=== PATIENT | female | born 1935 | race Caucasian/White ===

== ENCOUNTER 2018-05-04 18:02 | Observation (INO) ==
--- NOTE | 2018-05-04 18:20 | ED ---
HPI General Chief Complaint: Shortness of Breath/Dyspnea Stated Complaint: Trouble breathing Time Seen by Provider: 05/04/18 18:19 Source: patient Mode of arrival: ambulatory Limitations: no limitations History of Present Illness 82-year-old female patient with history of atrial fibrillation currently on Eliquis, digoxin, hypertension, presents to the ER today because she states that she has been having worsening dyspnea on exertion and shortness of breath in the last week. She has been coughing but without significant phlegm production. She denies any fevers, vomiting, chest pains, or other symptoms. modifying Factors: None Associated Signs & Symptoms: Dyspnea on exertion, shortness of breath, coughing Risk Factors: Elderly Related Data Home Medications Medication Instructions Recorded Confirmed albuterol sulfate [Ventolin HFA] 2 puff INHALATION Q4-6H PRN 05/04/18 05/04/18 apixaban [Eliquis] 5 mg PO BID 05/04/18 05/04/18 digoxin 0.125 mg PO DAILY 05/04/18 05/04/18 levothyroxine 75 mcg PO DAILY 05/04/18 05/04/18 metoprolol tartrate 75 mg PO BID 05/04/18 05/04/18 Allergies Allergy/AdvReac Type Severity Reaction Status Date / Time fluticasone Allergy Severe PALPITATION Verified 05/04/18 18:29 fluticasone furoate Allergy Severe PALPITATION Verified 05/04/18 18:29 pravastatin Allergy Severe all Verified 05/04/18 18:29 statins cause muscle aches salmeterol Allergy Severe PALPITATION Verified 05/04/18 18:29 Sulfa (Sulfonamide Allergy Severe DISORIENTED Verified 05/04/18 18:29 Antibiotics) grass pollen AdvReac Severe Unknown Verified 05/04/18 18:29 Review of Systems ROS: all other systems reviewed are negative PMFSH History History Provided By: Patient Medical History Medical History Asthma (Acute) Breast cancer (Acute) Detached retina (Acute) Hypothyroid (Acute) Afib (Acute) HTN (hypertension) (Acute) Surgical History Surgical History H/O lumpectomy (Acute) H/O: (Acute) Hx of cholecystectomy (Acute) Knee joint replacement status (Acute) S/P hip replacement (Acute) Social History Social History Substance History: No History of Abuse Smoking Status: Former smoker How Often Do You Have a Drink Containing Alcohol: Monthly or less Recent Travel in [facility] within the Last 8 Weeks: No Recent Out of Country Travel within the Last 8 Weeks: No Exam Narrative Exam Narrative: GENERAL: Well-developed elderly female patient currently in mild distress, mildly short of breath on exam. Awake and oriented x3. SKIN: Focused skin assessment warm/dry. HEAD: Atraumatic. Normocephalic. EYES: Pupils equal and round. No scleral icterus. No injection or drainage. ENT: No nasal bleeding or discharge. Mucous membranes pink and moist. NECK: Trachea midline. No JVD. CARDIOVASCULAR: Regular rate and rhythm. No murmur appreciated. RESPIRATORY: Mild o accessory muscle use. Clear to auscultation. Breath sounds equal bilaterally. GASTROINTESTINAL: Abdomen soft, non-tender, nondistended. Hepatic and splenic margins not palpable. MUSCULOSKELETAL: No obvious deformities. No clubbing. No cyanosis. Bilateral trace to +1 lower leg edema. NEUROLOGICAL: Awake and alert. No obvious cranial nerve deficits. Motor grossly within normal limits. Normal speech. PSYCHIATRIC: Appropriate mood and affect; insight and judgment normal. Course Initial Documented Vital Signs Temperature 98.4 F 05/04/18 18:20 Pulse Rate 92 H 05/04/18 18:20 Respiratory Rate 22 05/04/18 18:20 Blood Pressure 171/107 H 05/04/18 18:20 Pulse Oximetry 96 05/04/18 18:20 Last Documented Vital Signs Temperature 98.4 F 05/04/18 19:30 Pulse Rate 86 05/04/18 20:28 Respiratory Rate 20 05/04/18 20:28 Blood Pressure 187/90 H 05/04/18 20:03 Pulse Oximetry 95 05/04/18 20:03 Sign Out Sign Out Data: Patient Sign Out occurred on 05/04/18 at 19:04. Patient's care was discussed, and care was transferred from Avani Robles MD to Jessica Altman. Sign Out Comment: Case is signed out to oncoming physician at 7 PM pending workup. Disposition based on findings. Last updated by Avani Robles MD at 05/04/18 19:00 Medical Decision Making MDM Narrative Medical decision making narrative: Workup was initiated by me in the ER. Lab work and x-rays are all pending on sign out at 7 PM. I received patient in signout, patient has had productive cough, wheezing, dyspnea exertion which is getting worse over the past week. Patient denies any fevers or chills, denies any nausea or vomiting. Patient reports that she does see a licensed appraiser, Dr. Gaines, reports that she sees him because of the atrial fibrillation. She is currently on Eliquis for this. Labs have been resulted. WBC 8.2, hemoglobin 13.9, hematocrit 42.8, platelets 252 D-dimer is elevated at 0.67 Sodium 139, potassium 4.5, chloride 102, BUN 22, creatinine 1.0, glucose 181 Troponin less than 0.02, BNP [address] has been ordered as her d-dimer was elevated. Patient has slight wheezing on exam, patient will be given a dose of IV Solu- Medrol as well as 2 DuoNeb treatments. Patient's EKG shows atrial fibrillation with some moderate ST segment depressions, this EKG was compared to an EKG from March 12, 2015, the ST segment depressions are slightly more pronounced when compared to her previous EKGs. Patient does follow-up with a licensed appraiser, Dr. Gaines. CTA is negative for PE, she does have moderate coronary calcifications with cardiomegaly noted on the CT. Plan to obs as her sob could be due to ischemia. Plan to obs over night for cardiac monitoring case reviewed with Amy RUTH who accepts pt to service for observation Medical Screen Exam Complete: Yes Emergency Medical Condition: Yes Differential Diagnosis Differential Diagnosis: Bronchitis versus pneumonia versus CHF versus influenza Lab Data Result diagrams: 05/04/18 18:50 05/04/18 18:50 Lab Results 05/04/18 05/04/18 05/04/18 Range/Units 18:50 18:50 18:50 CBC w Diff Auto diff final WBC 8.2 (4.0-11.0) th/mm3 RBC 4.84 (4.00-5.30) mil/mm3 Hgb 13.9 (11.6-15.3) gm/dL Hct 42.8 (35.0-46.0) % MCV 88.4 (80.0-100.0) fL MCH 28.8 (27.0-34.0) pg MCHC 32.5 (32.0-36.0) % RDW 12.9 (11.6-17.2) % Plt Count 252 (150-450) th/mm3 MPV 9.0 (7.0-11.0) fL Neut % (Auto) 56.7 (16.0-70.0) % Lymph % (Auto) 26.9 (9.0-44.0) % [place] % (Auto) 9.9 H (0.0-8.0) % Eos % (Auto) 5.0 H (0.0-4.0) % Baso % (Auto) 1.5 (0.0-2.0) % Neut # (Auto) 4.7 (1.8-7.7) th/mm3 Lymph # (Auto) 2.2 (1.0-4.8) th/mm3 [place] # (Auto) 0.8 (0.0-0.9) th/mm3 Eos # (Auto) 0.4 (0.0-0.4) th/mm3 Baso # (Auto) 0.1 (0.0-0.2) th/mm3 WBC Differential . Differential Comment . D-Dimer Quant (PE/DVT) (0.00-0.50) mg/L FEU Sodium 139 (136-145) meq/L Potassium 4.5 (3.5-5.1) meq/L Chloride 102 (98-107) meq/L Carbon Dioxide 30.4 (21.0-32.0) meq/L Anion Gap 7 (5-15) meq/L BUN 22 H (7-18) mg/dL Creatinine 1.00 (0.50-1.00) mg/dL Estimated GFR 53 L (>89) mL/min Random Glucose 181 H (74-106) mg/dL Calcium 9.1 (8.5-10.1) mg/dL Total Bilirubin 0.2 (0.2-1.0) mg/dL AST 32 (15-37) U/L ALT 38 (10-53) U/L Alkaline Phosphatase 83 (45-117) U/L Troponin I Less than 0.02 L (0.02-0.05) ng/mL B-Natriuretic Peptide 187 H (0-100) pg/mL Total Protein 7.5 (6.4-8.2) g/dL Albumin 3.4 (3.4-5.0) g/dL Digoxin 1.5 (0.8-2.0) ng/mL 05/04/18 Range/Units 18:50 CBC w Diff WBC (4.0-11.0) th/mm3 RBC (4.00-5.30) mil/mm3 Hgb (11.6-15.3) gm/dL Hct (35.0-46.0) % MCV (80.0-100.0) fL MCH (27.0-34.0) pg MCHC (32.0-36.0) % RDW (11.6-17.2) % Plt Count (150-450) th/mm3 MPV (7.0-11.0) fL Neut % (Auto) (16.0-70.0) % Lymph % (Auto) (9.0-44.0) % [place] % (Auto) (0.0-8.0) % Eos % (Auto) (0.0-4.0) % Baso % (Auto) (0.0-2.0) % Neut # (Auto) (1.8-7.7) th/mm3 Lymph # (Auto) (1.0-4.8) th/mm3 [place] # (Auto) (0.0-0.9) th/mm3 Eos # (Auto) (0.0-0.4) th/mm3 Baso # (Auto) (0.0-0.2) th/mm3 WBC Differential Differential Comment D-Dimer Quant (PE/DVT) 0.67 H (0.00-0.50) mg/L FEU Sodium (136-145) meq/L Potassium (3.5-5.1) meq/L Chloride (98-107) meq/L Carbon Dioxide (21.0-32.0) meq/L Anion Gap (5-15) meq/L BUN (7-18) mg/dL Creatinine (0.50-1.00) mg/dL Estimated GFR (>89) mL/min Random Glucose (74-106) mg/dL Calcium (8.5-10.1) mg/dL Total Bilirubin (0.2-1.0) mg/dL AST (15-37) U/L ALT (10-53) U/L Alkaline Phosphatase (45-117) U/L Troponin I (0.02-0.05) ng/mL B-Natriuretic Peptide (0-100) pg/mL Total Protein (6.4-8.2) g/dL Albumin (3.4-5.0) g/dL Digoxin (0.8-2.0) ng/mL Imaging Data Radiologist's impression: Chest X-Ray 05/04/18 18:19 CONCLUSION: Elevated right hemidiaphragm with basilar atelectasis. No new infiltrate or effusion. Chest CTA 05/04/18 19:27 CONCLUSION: 1. Negative for pulmonary embolus. 2. Elevated right hemidiaphragm with right basilar atelectasis. Cardiomegaly. ECG Data EKG Prior to Arrival: No Attestation: I personally reviewed and interpreted this ECG as follows: Prior ECG tracings: available for review Interpretation: EKG at 1856: Afib at 73bpm, qt/qtc: 352/370, moderate st seg depression II, V2-V6 Discharge Plan Discharge Disposition Patient Disposition: ED Admit(ED Internal Use Only) Discharge Condition Condition: Stable Discharge Details Diagnosis: Dyspnea on exertion Physicians Team ED Provider: Jessica Altman Primary Care Provider: Rich Rossi Rxs /Orders / Referrals /Forms Prescriptions: No Action levothyroxine 75 mcg Tablet 75 mcg PO DAILY RF: 0 digoxin 125 mcg Tablet 0.125 mg PO DAILY RF: 0 albuterol sulfate [Ventolin HFA] 90 mcg/actuation Hfa Aerosol Inhaler 2 puff INHALATION Q4-6H PRN (Reason: Shortness Of Breath Or Wheezing) RF: 0 apixaban [Eliquis] 5 mg Tablet 5 mg PO BID RF: 0 metoprolol tartrate 75 mg Tablet 75 mg PO BID RF: 0 Status ED Status: With Doctor
[2018-05-04 19:04] LABS: Baso # (Auto) 0.1 th/mm3 (0.0-0.2); Baso % (Auto) 1.5 % (0.0-2.0); Eos # (Auto) 0.4 th/mm3 (0.0-0.4); Hematocrit 42.8 % (35.0-46.0); Hemoglobin 13.9 gm/dL (11.6-15.3); Lymph # (Auto) 2.2 th/mm3 (1.0-4.8); Lymph % (Auto) 26.9 % (9.0-44.0); Mean Corpuscular HGB Conc 32.5 % (32.0-36.0); Mean Corpuscular Hemoglobin 28.8 pg (27.0-34.0); Mean Corpuscular Volume 88.4 fL (80.0-100.0); Mono # (Auto) 0.8 th/mm3 (0.0-0.9); Mono % (Auto) 9.9 % (0.0-8.0); Neut # (Auto) 4.7 th/mm3 (1.8-7.7); Neut % (Auto) 56.7 % (16.0-70.0); Platelet Count 252 th/mm3 (150-450); Red Blood Count 4.84 mil/mm3 (4.00-5.30); Red Cell Distribution Width 12.9 % (11.6-17.2); White Blood Count 8.2 th/mm3 (4.0-11.0)
[2018-05-04 19:14] LABS: Chloride 102 meq/L (98-107); Potassium 4.5 meq/L (3.5-5.1); Sodium 139 meq/L (136-145)
[2018-05-04 19:17] LABS: Calcium 9.1 mg/dL (8.5-10.1)
[2018-05-04 19:18] LABS: Albumin 3.4 g/dL (3.4-5.0); Anion Gap 7 meq/L (5-15); Blood Urea Nitrogen 22 mg/dL (7-18); Carbon Dioxide 30.4 meq/L (21.0-32.0); Glucose,Random 181 mg/dL (74-106)
[2018-05-04 19:21] LABS: Alanine Aminotransferase 38 U/L (10-53); Aspartate Aminotransferase 32 U/L (15-37); Glomerular Filtration Rate 53 mL/min (>89)
[2018-05-04 19:23] LABS: Total Protein 7.5 g/dL (6.4-8.2)
[2018-05-04 19:24] LABS: Alkaline Phosphatase 83 U/L (45-117)
[2018-05-04 19:36] LABS: Digoxin 1.5 ng/mL (0.8-2.0)
[2018-05-04] MEDS ORDERED: MethylPREDNISolone Sod Succinate Inj 125 MG/2 ML Vial IV.PUSH ONE (19:48)
--- NOTE | 2018-05-04 20:06 | XR ---
EXAM DATE: 05/04/2018 7:08 PM EST AGE/SEX: 82 years / Female INDICATIONS: Short of breath. CLINICAL DATA: This is the patient's initial encounter. Patient reports that signs and symptoms have been present for 2 days and indicates a pain score of 0/10. MEDICAL/SURGICAL HISTORY: Asthma. Hypothyroidism. Hypertension. A-fib. section. C holecystectomy. Lumpectomy. COMPAR[place]: [facility] [place], 03/11/[place]. . FINDINGS: Elevated right hemidiaphragm with right basilar atelectasis. Tortuous aorta. No significant effusion. No pneumothorax. Surgical clips right chest wall. CONCLUSION: Elevated right hemidiaphragm with basilar atelectasis. No new infiltrate or effusion. Electronically signed by: Howard Lombardi MD Board Certified Radiologist 05/04/2018 8:05 PM EST
--- NOTE | 2018-05-04 21:20 | CT ---
EXAM DATE: 05/04/2018 9:00 PM EST AGE/SEX: 82 years / Female INDICATIONS: Shortness of breath. CLINICAL DATA: This is the patient's initial encounter. Patient reports that signs and symptoms have been present for 1 week and indicates a pain score of 0/10. MEDICAL/SURGICAL HISTORY: Carcinoma, breast. Hypertension. Cholecystectomy. Right lumpectomy. RADIATION DOSE: 13.36 CTDI (mGy) COMPARISON: No prior exams available for comparison. TECHNIQUE: Volumetric scanning was performed using a multi-row detector CT scanner during bolus infu pollo of 75 ml Omnipaque 350 (iohexol) nonionic water-soluble contrast as a single exam dose. The jazz a was post processed with a variety of visualization algorithms including full volume maximum intensi ty projection and sliding thin slab reformation. Using automated exposure control and adjustment of the mA and/or kV according to patient size, radiation dose was kept as low as reasonably achievable t o obtain optimal diagnostic quality images. DICOM format image data is available electronically for review and comparison. FINDINGS: No filling defects to suggest pulmonary embolic disease. There is right basilar atelectasis. Elevated right hemidiaphragm. No pleural or pericardial effusion. There is moderate coronary calcifications. Cardiomegaly. No acute findings in the upper abdomen CONCLUSION: 1. Negative for pulmonary embolus. 2. Elevated right hemidiaphragm with right basilar atelectasis. Cardiomegaly. Electronically signed by: Howard Lombardi MD Board Certified Radiologist 05/04/2018 9:19 PM EST
[2018-05-04] MEDS ORDERED: Bisacodyl 10 MG Supp RECTAL PRN (21:45)
[2018-05-04] MEDS ORDERED: Acetaminophen 325 MG Tablet PO PRN (21:45)
[2018-05-05] MEDS ORDERED: Metoprolol Tartrate 25 MG Tablet PO ONE (01:50)
[2018-05-05] MEDS: MethylPREDNISolone Sod Succinate Inj 40 MG/ML Vial IV.PUSH SCH ×2 (02:09→05:27)
[2018-05-05 06:27] LABS: Baso % (Auto) 0.4 % (0.0-2.0); Hematocrit 43.5 % (35.0-46.0); Hemoglobin 14.1 gm/dL (11.6-15.3); Lymph # (Auto) 0.7 th/mm3 (1.0-4.8); Lymph % (Auto) 8.2 % (9.0-44.0); Mean Corpuscular HGB Conc 32.3 % (32.0-36.0); Mean Corpuscular Hemoglobin 28.4 pg (27.0-34.0); Mean Corpuscular Volume 87.8 fL (80.0-100.0); Mean Platelet Volume 9.8 fL (7.0-11.0); Mono % (Auto) 0.4 % (0.0-8.0); Neut # (Auto) 8.2 th/mm3 (1.8-7.7); Platelet Count 244 th/mm3 (150-450); Red Blood Count 4.95 mil/mm3 (4.00-5.30); Red Cell Distribution Width 12.8 % (11.6-17.2); White Blood Count 8.9 th/mm3 (4.0-11.0)
[2018-05-05 06:32] LABS: Chloride 101 meq/L (98-107); Potassium 4.2 meq/L (3.5-5.1); Sodium 138 meq/L (136-145)
[2018-05-05 06:37] LABS: Calcium 9.1 mg/dL (8.5-10.1)
[2018-05-05 06:38] LABS: Anion Gap 9 meq/L (5-15)
[2018-05-05 06:44] LABS: Blood Urea Nitrogen 18 mg/dL (7-18); Glomerular Filtration Rate 55 mL/min (>89); Glucose,Random 335 mg/dL (74-106)
[2018-05-05] MEDS ORDERED: Metoprolol Tartrate 25 MG Tablet PO SCH (09:00)
[2018-05-05] MEDS ORDERED: Digoxin 125 MCG Tablet PO SCH (09:00)
--- NOTE | 2018-05-05 10:00 | ECG ---
Date Performed: 05/04/2018 Time Performed: 18:56:30 PTAGE: 82 years EKG: ATRIAL FIBRILLATION INCOMPLETE RIGHT BUNDLE BRANCH BLOCK MODERATE ST DEPRESSION ABNORMAL EC G PREVIOUS TRACING : 03/12/2015 14.55 DOCTOR: Maxwell Edmond Interpretating Date/Time 05/05/2018 09:56:57
[2018-05-05] MEDS ORDERED: Dextrose 50% in Water 50 ML Vial IV.PUSH PRN (10:18)
[2018-05-05] MEDS ORDERED: Insulin NovoLOG Aspart Correctional Sugar Inj SQ SCH (12:00)
--- NOTE | 2018-05-05 13:46 | P.HPIM ---
History of Present Illness Primary Care Physician: Rich Rossi DO Chief Complaint: Course of breath History of Present Illness: 82-year-old female with known history of hypertension, chronic atrial fibrillation, hypothyroidism, asthma, diabetes who presented to the hospital because of intermittent shortness of breath. Patient states that she usually does get some episodes of shortness of breath and difficulty breathing and she usually uses her handheld inhaler with resolution of her shortness of breath. However she did get an episode yesterday, she did not use her inhaler and because she cannot walk but approximate 10 feet without getting short of breath she came to emergency department for evaluation. Patient indicates that after she was given Solu-Medrol, DuoNeb her shortness of breath resolved. Patient had continued workup in the emergency department with chest x-ray, CTA of the chest which did not indicate any acute abnormality. Laboratory studies were unremarkable. Because of the patient's presenting symptom of shortness of breath the ER physician recommended that the patient be observed in the hospital for further evaluation and management. Patient denied any chest pain, dyspnea on exertion, lower extremity edema, cough, congestion, fever, rhinorrhea, pharyngitis, abdominal pain, nausea, vomiting. Patient does follow with Dr. Gaines on a regular basis. She indicates that she does had an echocardiogram done in February. She does not indicate any recent cardiac stress testing. Review of Systems Review of Systems: all other systems reviewed are negative Respiratory: Reports other (Shortness of breath) [facility] Medical History Medical History Asthma (Acute) Breast cancer (Acute) Detached retina (Acute) Diabetes (Acute) Hypothyroid (Acute) Afib (Acute) HTN (hypertension) (Acute) Surgical History Surgical History H/O lumpectomy (Acute) H/O: (Acute) Hx of cholecystectomy (Acute) Knee joint replacement status (Acute) S/P hip replacement (Acute) Social History Social History Substance History: No History of Abuse Second Hand Smoke Exposure: No Smoking Status: Former smoker Number of Pack-Years (if former smoker): 20 How Often Do You Have a Drink Containing Alcohol: Monthly or less Recent Travel in [place] within the Last 8 Weeks: No Recent Out of Country Travel within the Last 8 Weeks: No Immunization History Tetanus Immunization: Unsure Medications and Allergies Allergies Allergy/AdvReac Type Severity Reaction Status Date / Time fluticasone Allergy Severe PALPITATION Verified 05/04/18 18:29 fluticasone furoate Allergy Severe PALPITATION Verified 05/04/18 18:29 pravastatin Allergy Severe all Verified 05/04/18 18:29 statins cause muscle aches salmeterol Allergy Severe PALPITATION Verified 05/04/18 18:29 Sulfa (Sulfonamide Allergy Severe DISORIENTED Verified 05/04/18 18:29 Antibiotics) grass pollen AdvReac Severe Unknown Verified 05/04/18 18:29 Home Medications Medication Instructions Recorded Confirmed Type albuterol sulfate [Ventolin HFA] 2 puff INHALATION Q4-6H PRN 05/04/18 05/04/18 History apixaban [Eliquis] 5 mg PO BID 05/04/18 05/04/18 History digoxin 0.125 mg PO DAILY 05/04/18 05/04/18 History levothyroxine 75 mcg PO DAILY 05/04/18 05/04/18 History metoprolol tartrate 75 mg PO BID 05/04/18 05/04/18 History Active Medications: Active Medications Acetaminophen (Tylenol) 650 mg PO Q4H PRN PRN Reason: Temp > 100.4 Al Hydroxide/Mg Hydroxide (Milk Of Magnesia Liq) 30 ml PO Q12H PRN PRN Reason: Mild Constipation Apixaban (Eliquis) 5 mg PO BID [facility] Last Admin: 05/05/18 08:27 Dose: 5 mg Bisacodyl (Dulcolax Supp) 10 mg RECTAL DAILY PRN PRN Reason: SEVERE CONSITIPATION Dextrose (D50w Vial) 50 ml IV.PUSH UNSCH PRN PRN Reason: PER HYPOGLYCEMIA PROTOCOL Digoxin (Lanoxin) 125 mcg PO DAILY [facility] Last Admin: 05/05/18 08:27 Dose: 125 mcg Glucagon (Glucagon Inj) 1 mg OTHER PRN PRN PRN Reason: for Hypoglycemia Protocol Insulin Aspart (Novolog Insulin Correctional Sugar Inj) 0 unit SQ [facility]; Protocol Last Admin: 05/05/18 11:12 Dose: 7 unit Lactulose (Lactulose Liq) 30 ml PO DAILY PRN PRN Reason: SEVERE CONSITIPATION Levothyroxine Sodium (Synthroid) 75 mcg PO DAILY@0600 [facility] Methylprednisolone Sodium Succinate (Solumedrol Inj) 40 mg IV.PUSH Q8HR [facility] Last Admin: 05/05/18 05:27 Dose: 40 mg Metoprolol Tartrate (Lopressor) 75 mg PO BID [facility] Last Admin: 05/05/18 08:27 Dose: 75 mg Ondansetron HCl (Zofran Inj) 4 mg IV.PUSH Q6H PRN PRN Reason: NAUSEA OR VOMITING Sennosides (Senokot) 17.2 mg PO Q12H PRN PRN Reason: Moderate Constipation Sodium Chloride (Ns Flush) 2 ml IV.FLUSH BID [facility] Last Admin: 05/05/18 08:27 Dose: 2 ml Sodium Chloride (Ns Flush) 2 ml IV.FLUSH PRN PRN PRN Reason: FLUSH AFTER USING IV ACCESS Physical Exam Vital signs: Last Vital Signs Temp 97.3 F L 05/05/18 11:49 Pulse 92 H 05/05/18 11:49 Resp 18 05/05/18 11:49 BP 170/94 H 05/05/18 11:49 Pulse Ox 92 L 05/05/18 11:49 Intake & Output 05/03/18 05/04/18 05/05/18 05/06/18 06:59 06:59 06:59 06:59 Weight 80.6 kg Narrative: GENERAL: Well-developed, well-nourished, in no acute distress. alert and orientated HEENT: Head is normocephalic without any lesions or masses noted. Facial features are symmetric. Eyes: Pupils equal round reactive to light. Extraocular muscles are intact. Conjunctivae were clear. Oropharyngeal: Pharynx without any erythema edema. Tongue is midline without deviation. Buccal mucosa is moist without any masses or lesions NECK: Supple without any masses. Trachea midline no deviation. No JVD, no bruits are appreciated CARDIAC: Irregular rhythm, irregular rate. S1/S2 are heard. No murmurs gallops or rubs. LUNGS: Clear to auscultation bilaterally. No wheeze, rhonchi or rales. No use of accessory muscles on inspiration or expiration. ABDOMEN: Soft, nontender. Nondistended. Bowel sounds heard in all 4 quadrants. No organomegaly or masses. Negative rebound, negative guarding EXTREMITIES: No edema, pulses are equal bilaterally. No cyanosis or clubbing NEUROLOGY: Mood and affect appear appropriate. Cranial nerves II through XII grossly intact. Muscle strength 5/5 in upper and lower extremities bilaterally. Deep tendon reflexes are 2+ in upper and lower extremities bilaterally. Results Labs CBC & Chem 7: 05/05/18 05:15 05/05/18 05:15 Imaging Impressions Chest X-Ray 05/04/18 18:19 CONCLUSION: Elevated right hemidiaphragm with basilar atelectasis. No new infiltrate or effusion. Chest CTA 05/04/18 19:27 CONCLUSION: 1. Negative for pulmonary embolus. 2. Elevated right hemidiaphragm with right basilar atelectasis. Cardiomegaly. Caprini VTE Risk Assessment Caprini VTE Risk Assessment: Moderate/High Risk (score >= 2) Caprini Risk Assessment Model: Point Value = 1 Point Value = 2 Point Value = 3 Point Value = 5 Age 41-60 Minor surgery BMI > 25 kg/m2 Swollen legs Varicose veins or History of unexplained or recurrent spontaneous Oral contraceptives or hormone replacement Sepsis (< 1 month) Serious lung disease, including pneumonia (< 1 month) Abnormal pulmonary function Acute myocardial infarction Congestive heart failure (< 1 month) History of inflammatory bowel disease Medical patient at bed rest Age 61-74 Arthroscopic surgery Major open surgery (> 45 min) Laparoscopic surgery (> 45 min) Malignancy Confined to bed (> 72 hours) Immobilizing plaster cast Central venous access Age >= 75 History of VTE Family history of VTE Factor V Leiden Prothrombin [id number] Lupus anticoagulant Anticardiolipin antibodies Elevated serum homocysteine Heparin-induced thrombocytopenia Other congenital or acquired thrombophilia Stroke (< 1 month) Elective arthroplasty Hip, pelvis, or leg fracture Acute spinal cord injury (< 1 month) Prophylaxis Regimen: Total Risk Factor Score Risk Level Prophylaxis Regimen 0-1 Low Early ambulation 2 Moderate Order ONE of the following: *Sequential Compression Device (SCD) *Heparin 5000 units SQ BID 3-4 Higher Order ONE of the following medications: *Heparin 5000 units SQ TID *Enoxaparin/Lovenox 40 mg SQ daily (WT < 150 kg, CrCl > 30 mL/min) *Enoxaparin/Lovenox 30 mg SQ daily (WT < 150 kg, CrCl > 10-29 mL/min) *Enoxaparin/Lovenox 30 mg SQ BID (WT < 150 kg, CrCl > 30 mL/min) AND/OR *Sequential Compression Device (SCD) 5 or more Highest Order ONE of the following medications: *Heparin 5000 units SQ TID (Preferred with Epidurals) *Enoxaparin/Lovenox 40 mg SQ daily (WT < 150 kg, CrCl > 30 mL/min) *Enoxaparin/Lovenox 30 mg SQ daily (WT < 150 kg, CrCl > 10-29 mL/min) *Enoxaparin/Lovenox 30 mg SQ BID (WT < 150 kg, CrCl > 30 mL/min) AND *Sequential Compression Device (SCD) Assessment and Plan Plan Shortness of breath, resolved Multifactorial at this time could be secondary to COPD, asthma, atrial fibrillation, coronary component Patient was ruled out for acute coronary event with serial cardiac enzymes that are negative Patient had minimal elevation in BNP at 187, patient without any lower extremity edema, x-ray findings so unlikely related to CHF Given that the patient's symptoms resolved after the use of DuoNeb's, Solu- Medrol, most likely related to underlying lung disease Continue O2 segmentation maintain O2 sat greater than 92% currently patient is on room air We will discontinue Solu-Medrol 40 mg IV every 8 hours, start prednisone 10 mg daily Duo nebs as needed Spoke with patient's lime kiln worker Dr. Gaines, reviewed the patient's records , notified him of all the testing, results. He indicated that the patient does not need to have any further invasive testing at this time. Patient be discharged home with outpatient follow-up. History of diabetes with hyperglycemia Likely worsened secondary to steroids Patient used to be on metformin, however caused her significant loose stools Obtain hemoglobin A1c Accu-Cheks with sliding scale insulin Patient will need to follow-up with her primary medical doctor for continued management of her diabetes Accelerated hypertension Home medications were continued Chronic atrial fibrillation Rate controlled after resumption of home medications Eliquis continued for anticoagulation DVT prevention Patient is on Eliquis Discharge Planning: Discharge home in stable condition Activity: Ad harvinder. Diet: Diabetic diet Medication per medication reconciliation Follow-up with primary medical doctor in 1 week
[2018-05-05 16:27] VITALS: BP 136/66; PULSE 86; RESP 18; TEMP 97.6; O2SAT 94
[2018-05-05 17:05] LABS: Hemoglobin A1c 8.3 % (4.3-6.0)
[2018-05-06] MEDS ORDERED: Levothyroxine 75 MCG Tablet PO SCH (06:00)
[2018-05-06] MEDS ORDERED: predniSONE 10 MG Tablet PO SCH (09:00)
== END 2018-05-05 17:56 | disposition home or self-care (01) ==
LOC: PHED 18:02 → PHEDA 18:02 → PH3 23:05
PROVIDERS: ADMIT Internal Medicine; ATTEND Internal Medicine
CPT/HCPCS: 71010; 71045; 71275; 80048; 80053; 80162; 82948; 82962; 83036; 83520; 83880; 84484; 85025; 85379; 87275; 87276; 87804; 90774; 93005; 94640; 94664; 94665; 96372; 96374; 96376; 99285; C8952; G0378; J1815; J2920; J2930; Q9967